=== PATIENT | male | born 1980 | race Caucasian/White ===

== ENCOUNTER 2020-12-30 08:49 | Emergency (ER) | payer BC ==
[~2020-12-30] VITALS: Ht 175.3 cm; Wt 102.1 kg
[2020-12-30] MEDS ORDERED: CASIRIVIMAB/IMDEVIMAB 10 ML in SODIUM CHLORIDE 0.9% 100 ML IV ONE (09:00)
[2020-12-30] MEDS ORDERED: IBUPROFEN 400 MG TAB PO ONE (09:00)
[2020-12-30] MEDS ORDERED: SODIUM CHLORIDE 0.9% 100 ML ONE (09:04)
== END 2020-12-30 10:04 | disposition home or self-care (01) ==
LOC: ER 09:01
DX: U07.1 COVID-19 (principal); R50.9 Fever, unspecified; R53.81 Other malaise
CPT/HCPCS: 99283; J7050